=== PATIENT | male | born 1945 | race Two or more races ===

== ENCOUNTER 2019-02-05 14:03 | Emergency (ER) | payer MEDICAID, OTHER ==
[~2019-02-05] VITALS: Ht 175.3 cm; Wt 67.8 kg
[~2019-02-05 14:03] MED LIST: ALBU18HF INHALATION; ASPI-817 PO; AZIT250T PO; LOSA50TA14 PO; PRED20TA PO
[2019-02-05 14:08] VITALS: Ht 175.3 cm; Wt 67.8 kg
[2019-02-05] MEDS ORDERED: LOSA50TA14 PO (15:38)
[2019-02-05 15:57] VITALS: BP 183/85; PULSE 69; RESP 18
--- NOTE | 2019-02-05 18:27 | ERD ---
ER Documentation Chief Complaint Chief Complaint medication refill ( Cozaar) HPI 73-year-old man brought in by his son for medication refill, patient stopped using losartan about 1 month ago and has a long history of hypertension. He denies chest pain or shortness of breath, no calf or leg swelling, no headache or blurry vision, no complaints of paresis or paresthesias. ROS All systems reviewed and are negative except as per history of present illness. Medications Home Meds Active Scripts Losartan Potassium* (Losartan Potassium*) 50 Mg Tablet, 50 MG PO DAILY, #30 TAB Prov:SUNNI DIXON MD 02/05/19 Azithromycin* (Zithromax*) 250 Mg Tablet, 250 MG PO .ZPACK DIRECTED, #6 TAB TAKE 500 MG (2 TABS) THE FIRST DAY THEN 250 MG (1 TAB) DAYS 2-5 Prov:ALEXANDRO FLORES MD 10/31/18 Prednisone* (Prednisone*) 20 Mg Tab, 40 MG PO DAILY for 4 Days, TAB Prov:ALEXANDRO FLORES MD 10/31/18 Albuterol Sulfate* (Ventolin HFA*) 18 Gm Hfa.aer.ad, 2 PUFF INHALATION Q4H, #1 INHALER Prov:ALEXANDRO FLORES MD 10/31/18 Reported Medications Aspirin* (Aspirin* EC) 81 Mg Tablet.dr, 81 MG PO DAILY, TAB 10/31/18 Losartan Potassium* (Losartan Potassium*) 50 Mg Tablet, 50 MG PO DAILY, TAB 10/31/18 Allergies Allergies: Coded Allergies: No Known Allergy (Unverified , 10/31/18) PMhx/Soc Hypertension Anesthesia Reaction: No Hx Neurological Disorder: No Hx Cardiac Disorders: Yes (HTN ) Hx Psychiatric Problems: No Hx Miscellaneous Medical Probl: No Hx Alcohol Use: No Hx Substance Use: No Hx Tobacco Use: Yes Smoking Status: Former smoker Physical Exam Vitals Vital Signs Date Temp Pulse Resp B/P (MAP) Pulse Ox O2 O2 Flow FiO2 Time Delivery Rate 02/05/19 97.8 69 18 183/85 95 Room Air 15:57 (117) 02/05/19 98.0 82 19 181/90 100 14:08 (120) Physical Exam GENERAL: Well-developed, well-nourished, well-hydrated, in no apparent distress, looks nontoxic in appearance HEENT: Moist mucous membranes, pink conjunctiva, no cervical spine tenderness or step-off deformities, no goiter, no jaundice or icterus, extraocular movements intact without pain. No submandibular induration, and no pharyngeal erythema NEURO: Alert and oriented 3, cranial nerves II through XII intact bilaterally, pupils equal round reactive to light, no focal deficits or facial asymmetry, sen sation intact distally Strength 5/5 in upper and lower extremities bilaterally CARDIAC: Regular rate and rhythm, no murmurs rubs or gallops LUNGS: Clear bilaterally no wheezing crackles or stridor ABDOMEN: Soft nontender, no guarding, no rigidity, no rebound, no psoas sign no obturator sign. Normoactive bowel sounds SKIN: Warm and dry to touch, no abrasions, contusions, or hematomas, no lacerations, no ecchymosis, no target lesions, and without ulcers EXTREMITIES: No clubbing cyanosis or edema, calves are bilaterally symmetrical, no Homans sign, no popliteal cord sign. Distal pulses equal and bilateral PSYCH: Normal affect without agitation or irritability Procedures/MDM Funduscopic exam was deferred and patient was initially hypertensive although while in the emergency department his blood pressure fell and he remains asymptomatic. Patient has no complaints of blurry vision or vision loss although I did tell him chronic especially uncontrolled hypertension may contribute to vision damage. Patient feels much better at this time, and vital signs are normal, symptoms have improved. I did give strict instructions to return to the ED if symptoms continue or worsen, patient will otherwise follow-up with primary care physician. Patient understood instructions and agreed to plan. Disclaimer: Inadvertent spelling and grammatical errors are likely due to EHR/dictation software use and do not reflect on the overall quality of patient care. Also, please note that the electronic time recorded on this note does not necessarily reflect the actual time of the patient encounter. Departure Diagnosis: Primary Impression: Encounter for medication refill Additional Impression: Hypertension Hypertension type: essential hypertension Qualified Codes: I10 - Essential (primary) hypertension Condition: Good Patient Instructions: Hypertension, Established SUNNI DIXON MD February 05, 2019 18:27
== END 2019-02-05 15:59 | disposition home or self-care (01) ==
LOC: FTE 14:03
DX: I10 Essential (primary) hypertension (principal); Z79.82 Long term (current) use of aspirin
CPT/HCPCS: 99281

== ENCOUNTER 2019-03-12 12:18 | Emergency (ER) | payer OTHER ==
[~2019-03-12] VITALS: Ht 175.3 cm; Wt 67.2 kg
[2019-03-12 12:20] VITALS: BP 174/87; PULSE 94; RESP 18; Ht 175.3 cm; Wt 67.2 kg
[2019-03-12] MEDS ORDERED: ATOR10TA65 PO (12:33)
[2019-03-12] MEDS ORDERED: LOSA50TA14 PO (12:33)
--- NOTE | 2019-03-12 12:49 | ERD ---
ER Documentation Chief Complaint Chief Complaint wants a medication refill HPI 73-year-old male presenting for medication refill. Patient is requesting medication for his blood pressure. He takes losartan 50 mg daily and atorvastatin 10 mg daily. Patient states he has been without his medic patient for the last 2 days. He was unable to follow-up with his primary doctor. Patient denies any chest pain or shortness of breath. Denies any headaches or vomiting. Denies visual changes. Denies other medical problems. NKDA. Surgical history denies. Social history denies ROS All systems reviewed and are negative except as per history of present illness. Medications Home Meds Active Scripts Losartan Potassium* (Losartan Potassium*) 50 Mg Tablet, 50 MG PO DAILY, #30 TAB Prov:MINDY LEDESMA PA-C 03/12/19 Atorvastatin Calcium (Atorvastatin Calcium) 10 Mg Tablet, 10 MG PO QHS, #30 TAB Prov:MINDY LEDESMA PA-C 03/12/19 Losartan Potassium* (Losartan Potassium*) 50 Mg Tablet, 50 MG PO DAILY, #30 TAB Prov:SUNNI DIXON MD 02/05/19 Azithromycin* (Zithromax*) 250 Mg Tablet, 250 MG PO .ZPACK DIRECTED, #6 TAB TAKE 500 MG (2 TABS) THE FIRST DAY THEN 250 MG (1 TAB) DAYS 2-5 Prov:ALEXANDRO FLORES MD 10/31/18 Prednisone* (Prednisone*) 20 Mg Tab, 40 MG PO DAILY for 4 Days, TAB Prov:ALEXANDRO FLORES MD 10/31/18 Albuterol Sulfate* (Ventolin HFA*) 18 Gm Hfa.aer.ad, 2 PUFF INHALATION Q4H, #1 INHALER Prov:ALEXANDRO FLORES MD 10/31/18 Reported Medications Aspirin* (Aspirin* EC) 81 Mg Tablet.dr, 81 MG PO DAILY, TAB 10/31/18 Losartan Potassium* (Losartan Potassium*) 50 Mg Tablet, 50 MG PO DAILY, TAB 10/31/18 Allergies Allergies: Coded Allergies: No Known Allergy (Unverified , 10/31/18) PMhx/Soc Anesthesia Reaction: No Hx Neurological Disorder: No Hx Cardiac Disorders: Yes (HTN ) Hx Psychiatric Problems: No Hx Miscellaneous Medical Probl: No Hx Alcohol Use: No Hx Substance Use: No Hx Tobacco Use: Yes Smoking Status: Current every day smoker FmHx Family History: No diabetes, No coronary disease, No other Physical Exam Vitals Vital Signs Date Temp Pulse Resp B/P (MAP) Pulse Ox O2 O2 Flow FiO2 Time Delivery Rate 03/12/19 97.8 94 18 174/87 98 12:20 (116) Physical Exam GENERAL: The patient is well-appearing, well-nourished, in no acute distress HEENT: Atraumatic. Conjunctivae are pink. Pupils equal, round, and reactive to light. There is no scleral icterus. Tympanic membranes clear bilaterally. Oropharynx clear. CHEST: Clear to auscultation bilaterally. There are no rales, wheezes or rhonchi. HEART: Regular rate and rhythm. No murmurs, clicks, rubs or gallops. . NEUROLOGIC: Alert and oriented. Cranial nerves II through XII intact. Motor strength in all 4 extremities with 5 out of 5 strength. Sensation grossly intact. Normal speech and gait. Procedures/MDM MDM: 73-year-old male presenting for medication refill. Patient's exam is non- concerning. Patient is told to follow-up with primary care. Patient is discharged with strict ER precautions. Patient is discharged with strict ER precautions and told to follow-up with primary care within 1 to 2 days for close evaluation. All questions answered at discharge Departure Diagnosis: Primary Impression: Encounter for medication refill Condition: Stable Patient Instructions: Taking Medicine Safely Referrals: [facility] YOU HAVE RECEIVED A MEDICAL SCREENING EXAM AND THE RESULTS INDICATE THAT YOU DO NOT HAVE A CONDITION THAT REQUIRES URGENT TREATMENT IN THE EMERGENCY DEPARTMENT. FURTHER EVALUATION AND TREATMENT OF YOUR CONDITION CAN WAIT UNTIL YOU ARE SEEN IN YOUR DOCTORS OFFICE WITHIN THE NEXT 1-2 DAYS. IT IS YOUR RESPONSIBILITY TO MAKE AN APPOINTMENT FOR FOLOW-UP CARE. IF YOU HAVE A PRIMARY DOCTOR --you should call your primary doctor and schedule an appointment IF YOU DO NOT HAVE A PRIMARY DOCTOR YOU CAN CALL OUR PHYSICIAN REFERRAL HOTLINE AT IF YOU CAN NOT AFFORD TO SEE A PHYSICIAN YOU CAN CHOSE FROM THE FOLLOWING [facility] [address] [facility] [facility] [address] [facility] [address] [facility]. [facility] [address] [facility] [address] [facility]. [facility] [address] Additional Instructions: FOLLOW UP WITH YOUR PRIMARY CARE PHYSICIAN TOMORROW.Return to this facility if you are not improving as expected. MINDY LEDESMA PA-C Mar 12, 2019 12:49
== END 2019-03-12 13:18 | disposition home or self-care (01) ==
LOC: FTE 12:18
DX: Z76.0 Encounter for issue of repeat prescription (principal); I10 Essential (primary) hypertension; F17.210 Nicotine dependence, cigarettes, uncomplicated; Z79.82 Long term (current) use of aspirin
CPT/HCPCS: 99281